=== PATIENT | female | born 1995 | race Caucasian/White ===

== ENCOUNTER 2019-02-04 02:00 | Emergency (ER) | payer BC ==
[~2019-02-04] VITALS: Ht 165.1 cm; Wt 81.7 kg
[2019-02-04] MEDS ORDERED: PRENATAL GUMMI1 EACH PO (02:12)
[2019-02-04] MEDS ORDERED: VITAMIN B-650 M1 PO (02:12)
== END 2019-02-04 04:22 | disposition home or self-care (01) ==
LOC: ED 02:00
DX: O20.9 Hemorrhage in early pregnancy, unspecified (principal); Z79.899 Other long term (current) drug therapy; Z3A.01 Less than 8 weeks gestation of pregnancy
CPT/HCPCS: 76801; 76817; 85025; 86900; 86901; 96372; 99284-25; J2790